=== PATIENT | female | born 2000 | race Caucasian/White ===

== ENCOUNTER 2022-12-23 19:50 | Day surgery (SDC) | payer MEDICAID, OTHER ==
[2022-12-23 20:17] VITALS: BMI 29.1
[2022-12-23] MEDS ORDERED: hydrALAZINE 20 MG/ML VIAL SLOW IVP PRN (21:11)
== END 2022-12-23 21:40 | disposition home or self-care (01) ==
LOC: CSHLD/OP 19:50
PROVIDERS: ATTEND Obstetrics & Gynecology
DX: O36.8130 Decreased fetal movements, third trimester, not applicable or unspecified (principal); O47.03 False labor before 37 completed weeks of gestation, third trimester; O23.593 Infection of other part of genital tract in pregnancy, third trimester; O99.283 Endocrine, nutritional and metabolic diseases complicating pregnancy, third trimester; E03.9 Hypothyroidism, unspecified; Z79.899 Other long term (current) drug therapy; Z88.0 Allergy status to penicillin; Z88.5 Allergy status to narcotic agent; Z3A.33 33 weeks gestation of pregnancy
CPT/HCPCS: 87480; 87510; 87660; 99283

== ENCOUNTER 2023-01-28 06:00 | Inpatient (IN) | payer OTHER ==
[2023-01-28] MEDS ORDERED: Methylergonovine 0.2 MG/ML VIAL IM PRN (07:20)
[2023-01-28] MEDS ORDERED: Promethazine HCl 25 MG/ML VIAL IM PRN ×2 (07:20→14:15)
[2023-01-28] MEDS ORDERED: Misoprostol 200 MCG TAB PR PRN (07:20)
[2023-01-28] MEDS ORDERED: Lidocaine 1% (PF) 30 ML VIAL SC PRN (07:20)
[2023-01-28] MEDS ORDERED: Ondansetron PF 4 MG/2 ML Vial IVP PRN ×2 (07:20→14:15)
[2023-01-28] MEDS ORDERED: hydrALAZINE 20 MG/ML VIAL SLOW IVP PRN ×2 (07:20→16:46)
[2023-01-28] MEDS ORDERED: Ibuprofen 800 MG TAB PO PRN (07:20)
[2023-01-28] MEDS ORDERED: Lactated Ringer's 1,000 ML IV SCH (07:30)
[2023-01-28] MEDS ORDERED: NS w/ Oxytocin 30 units 500 ML IV SCH ×3 (07:30→16:46)
[2023-01-28 07:59] VITALS: BMI 31.1
[2023-01-28 08:53] LABS: Hemoglobin 11.9 g/dL (12.0-15.5); Mean Corpuscular HGB CONC 35.3 g/dL (32.0-36.0); Mean Corpuscular Hemoglobin 31.6 pg (27.0-33.0); Mean Corpuscular Volume 89.4 fl (81.6-98.3); Mean Platelet Volume 11.2 fl (7.4-10.4); Platelet Count 319 10x3/uL (150-450); RBC Distribution Width 12.6 % (11.5-14.5); Red Blood Cell (RBC) Count 3.77 10x6/uL (3.90-5.03); White Blood Cell (WBC) Count 9.8 10x3/uL (3.5-10.5)
[2023-01-28 09:25] LABS: SARS-CoV-2 NAA Rapid Test Not Detected (NotDetected)
[2023-01-28 09:37] LABS: HBSAg Index 0.13 S/CO (0-0.99); Hep B Surf Ag Non-Reactive S/CO (NonReactive)
[2023-01-28 09:38] LABS: Syphilis Antibody Nonreactive (Nonreactive); Syphilis Antibody Index 0.04 S/CO (<1.00 Non-Reactive)
[2023-01-28] MEDS ORDERED: Fentanyl 2 mcg/Bup 0.1% Cadd 100 ML ONE (11:04)
[2023-01-28] MEDS ORDERED: Communication Order-Pharmacy FS SCH (14:15)
[2023-01-28] MEDS ORDERED: Moisturizing Cream (Eucerin) 113 GM JAR TOP PRN (14:15)
[2023-01-28] MEDS ORDERED: Acetaminophen 325 MG TAB PO PRN (14:15)
[2023-01-28] MEDS ORDERED: diphenhydrAMINE 50 MG/ML VIAL IVP PRN (14:15)
[2023-01-28] MEDS ORDERED: ePHEDrine Sulfate 50 MG/10 ML VIAL SLOW IVP PRN (14:15)
[2023-01-28] MEDS ORDERED: Lactated Ringer's 500 ML IV PRN (14:15)
[2023-01-28] MEDS ORDERED: Fentanyl 2 mcg/Bupivacaine 0.1% Cassette 100 ML EPIDURAL SCH (14:15)
[2023-01-28] MEDS ORDERED: Naloxone HCl 0.4 mg/ml Vial IVP PRN ×2 (14:15)
[2023-01-28] MEDS ORDERED: Benzocaine-Menthol 82.5 ML CAN TOP PRN (16:46)
[2023-01-28] MEDS ORDERED: Misoprostol 200 MCG TAB VAG PRN (16:46)
[2023-01-28] MEDS ORDERED: Lanolin Ointment 7 GM TUBE TOP PRN (16:46)
[2023-01-28] MEDS ORDERED: Milk Of Magnesia 30 ML UDCUP PO PRN (16:46)
[2023-01-28] MEDS ORDERED: Boostrix 0.5 ML (Tdap) VIAL (>/=7 yrs of age) IM ONE (16:46)
[2023-01-28] MEDS ORDERED: Bisacodyl 10 MG SUPP PR PRN (16:46)
[2023-01-28] MEDS ORDERED: Bupivacaine 0.25% HCL 30 ML VIAL ONE (20:03)
[2023-01-28] MEDS: Docusate 100 MG CAP PO SCH (20:03)
[2023-01-28] MEDS: Ibuprofen 800 MG TAB PO SCH (20:03)
[2023-01-28] MEDS ORDERED: ePHEDrine 50 MG/ML VIAL ONE (20:03)
[2023-01-29] MEDS: Ibuprofen 800 MG TAB PO SCH (05:26)
[2023-01-29] MEDS: Ferrous Sulfate 325 MG TAB PO SCH ×3 (07:30→07:34)
[2023-01-29] MEDS ORDERED: Prenatal Vitamin 1 TAB PO SCH (09:00)
[2023-01-29] MEDS: Docusate 100 MG CAP PO SCH (09:12)
[2023-01-29 11:32] VITALS: BP 119/80; TEMP 98.1
== END 2023-01-29 18:45 | disposition home or self-care (01) | DRG 807 ==
LOC: CSHLD 07:12 → CSHPP 16:35
PROVIDERS: ADMIT Obstetrics & Gynecology; ATTEND Obstetrics & Gynecology
PROC: 10E0XZZ Delivery of Products of Conception, External Approach (ICD-10-PCS; principal; 2023-01-28)
PROC: 10907ZC Drainage of Amniotic Fluid, Therapeutic from Products of Conception, Via Natural or Artificial Opening (ICD-10-PCS; 2023-01-28)
PROC: 0HQ9XZZ Repair Perineum Skin, External Approach (ICD-10-PCS; 2023-01-28)
DX: O70.0 First degree perineal laceration during delivery (principal); Z37.0 Single live birth; Z20.822 Contact with and (suspected) exposure to COVID-19; Z88.1 Allergy status to other antibiotic agents; Z88.6 Allergy status to analgesic agent; Z88.8 Allergy status to other drugs, medicaments and biological substances; Z3A.39 39 weeks gestation of pregnancy
CPT/HCPCS: 51702; 85027; 86780; 86850; 86900; 86901; 87340; J2001; J2590; J3490; J7120; S0020

== ENCOUNTER 2024-06-01 05:30 | Inpatient (IN) | payer BC, MEDICAID ==
[2024-06-01 06:25] VITALS: BMI 30.7
[2024-06-01] MEDS ORDERED: Promethazine HCl 25 MG/ML VIAL IM PRN ×2 (07:08→15:49)
[2024-06-01] MEDS ORDERED: Diphenoxylate HCl/Atropine Tablet PO PRN ×2 (07:08)
[2024-06-01] MEDS ORDERED: Ibuprofen 800 MG TAB PO PRN (07:08)
[2024-06-01] MEDS ORDERED: Ondansetron PF 4 MG/2 ML Vial IVP PRN ×2 (07:08→15:49)
[2024-06-01] MEDS ORDERED: Misoprostol 200 MCG TAB PR PRN (07:08)
[2024-06-01] MEDS ORDERED: Lidocaine 1% (PF) 30 ML VIAL SC PRN (07:08)
[2024-06-01] MEDS ORDERED: fentaNYL 50 mcg/mL 1 mL Vial SLOW IVP PRN (07:08)
[2024-06-01] MEDS ORDERED: hydrALAZINE 20 MG/ML VIAL SLOW IVP PRN ×2 (07:08→20:43)
[2024-06-01] MEDS ORDERED: Carboprost 250 MCG/ML AMP IM PRN (07:08)
[2024-06-01] MEDS ORDERED: Methylergonovine 0.2 MG/ML VIAL IM PRN ×2 (07:08→20:43)
[2024-06-01] MEDS ORDERED: Tranexamic Acid 1,000 MG/10 ML VIAL IVP PRN (07:08)
[2024-06-01] MEDS ORDERED: Oxytocin 30 units/NS 500 ML 500 ML IV SCH ×2 (07:15→20:43)
[2024-06-01 07:18] LABS: Hematocrit 31.3 % (34.9-44.5); Hemoglobin 10.6 g/dL (12.0-15.5); Mean Corpuscular HGB CONC 33.9 g/dL (32.0-36.0); Mean Corpuscular Hemoglobin 27.9 pg (27.0-33.0); Mean Corpuscular Volume 82.4 fL (81.6-98.3); Mean Platelet Volume 10.8 fL (7.4-10.4); Platelet Count 271 10x3/uL (150-450); RBC Distribution Width 14.6 % (11.5-14.5); White Blood Cell (WBC) Count 9.9 10x3/uL (3.5-10.5)
[2024-06-01] MEDS: Lactated Ringer's 1,000 ML IV SCH (07:33)
[2024-06-01] MEDS: Oxytocin 30 units/NS 500 ML 500 ML IV SCH (07:34)
[2024-06-01 07:47] LABS: Syphilis Antibody Nonreactive (Nonreactive); Syphilis Antibody Index 0.11 S/CO (<1.00 Non-Reactive)
[2024-06-01 07:49] LABS: HBsAg Index 0.18 S/CO (0-0.99); Hep B Surf Ag - L&D Non-Reactive S/CO (NonReactive)
[2024-06-01] MEDS: fentaNYL/Ropivacaine Epidural 100 ML ONE (15:26)
[2024-06-01] MEDS ORDERED: ePHEDrine Sulfate 50 MG/10 ML VIAL SLOW IVP PRN (15:49)
[2024-06-01] MEDS ORDERED: Naloxone HCl 0.4 mg/ml Vial IVP PRN ×2 (15:49)
[2024-06-01] MEDS ORDERED: Lactated Ringer's 500 ML IV PRN (15:49)
[2024-06-01] MEDS ORDERED: diphenhydrAMINE 50 MG/ML VIAL IVP PRN (15:49)
[2024-06-01] MEDS ORDERED: Acetaminophen 325 MG TAB PO PRN (15:49)
[2024-06-01] MEDS ORDERED: Moisturizing Cream (Eucerin) 113 GM JAR TOP PRN (15:49)
[2024-06-01] MEDS ORDERED: Communication Order-Pharmacy FS SCH (16:00)
[2024-06-01] MEDS ORDERED: fentaNYL 2 mcg/Ropivacaine 0.2% Epidural 100 ML CADD EPIDURAL SCH (16:00)
[2024-06-01] MEDS ORDERED: Boostrix 0.5 ML (Tdap) VIAL (>/=7 yrs of age) IM ONE (20:43)
[2024-06-01] MEDS ORDERED: Milk Of Magnesia 30 ML UDCUP PO PRN (20:43)
[2024-06-01] MEDS ORDERED: Benzocaine-Menthol 82.5 ML CAN TOP PRN (20:43)
[2024-06-01] MEDS ORDERED: Misoprostol 200 MCG TAB VAG PRN (20:43)
[2024-06-01] MEDS ORDERED: Bisacodyl 10 MG SUPP PR PRN (20:43)
[2024-06-01] MEDS: Docusate 100 MG CAP PO SCH (21:23)
[2024-06-01] MEDS: Ibuprofen 800 MG TAB PO SCH (21:23)
[2024-06-02] MEDS: Ferrous Sulfate 325 MG TAB PO SCH (07:28)
[2024-06-02] MEDS: Prenatal Vitamin 1 TAB PO SCH (08:13)
[2024-06-02] MEDS ORDERED: Bupivacaine 0.25% HCL 30 ML VIAL ONE (09:00)
[2024-06-02 16:30] VITALS: BP 128/56; TEMP 98.2
== END 2024-06-02 18:45 | disposition home or self-care (01) | DRG 807 ==
LOC: CSHLD 05:42 → CSHPP 20:22
PROVIDERS: ADMIT Obstetrics & Gynecology; ATTEND Obstetrics & Gynecology
PROC: 10E0XZZ Delivery of Products of Conception, External Approach (ICD-10-PCS; principal; 2024-06-01)
PROC: 10907ZC Drainage of Amniotic Fluid, Therapeutic from Products of Conception, Via Natural or Artificial Opening (ICD-10-PCS; 2024-06-01)
DX: O69.89X0 Labor and delivery complicated by other cord complications, not applicable or unspecified (principal); Z37.0 Single live birth; Z3A.39 39 weeks gestation of pregnancy; Z90.89 Acquired absence of other organs; Z88.5 Allergy status to narcotic agent
CPT/HCPCS: 51702; 85027; 86780; 86850; 86900; 86901; 87340; J0665; J2590; J7120